=== PATIENT | female | born 1990 | race African-American/Black ===

== ENCOUNTER 2023-04-21 00:51 | Emergency (ER) | payer MEDICAID ==
[~2023-04-21] VITALS: Ht 172.7 cm; Wt 134.3 kg
[2023-04-21 00:57] VITALS: BP_SYST 126; PULSE 56; RESP 19; TEMP 98; O2SAT 100
== END 2023-04-21 01:19 | disposition home or self-care (01) ==
LOC: SED 00:51
DX: K21.9 Gastro-esophageal reflux disease without esophagitis (principal); R07.2 Precordial pain; Z91.018 Allergy to other foods; Z91.048 Other nonmedicinal substance allergy status; Z79.899 Other long term (current) drug therapy
CPT/HCPCS: 93005; 99283